=== PATIENT | female | born 1950 | race Caucasian/White ===

== ENCOUNTER → 2020-10-31 13:26 | Outpatient (CLI) | payer BC, SELFPAY ==
--- NOTE | ~2020-10-31 | MMUS_ITS ---
EXAMINATION: MM diagnostic jhony BI w lucila, US breast BI complete HISTORY: Right breast lump, right axillary lump TECHNIQUE: Full field and spot ML, MLO and cc 3-D tomosynthesis images of both breasts were performed and synthetic 2-D images were generated. CAD analysis was submitted and interpreted. High resolution complete bilateral breast ultrasound was performed. COMPARISON: 03/12/2017 bilateral digital screening mammogram BREAST PARENCHYMAL COMPOSITION: The breasts are heterogeneously dense, which may obscure small masses . FINDINGS: MAMMOGRAPHIC FINDINGS: There is interval asymmetric increased density in the mid to upper outer right breast and there are e nlarged right axillary lymph nodes since 03/12/2017. The findings are suspicious for possible right segun ast malignancy and metastatic right axillary lymphadenopathy. No reproducible mass or architectural distortion is evident on the left. No malignant calcification, skin thickening or retraction is evident on either side. ULTRASOUND: Right breast: 9:00 5 cm from nipple: There is a large very irregular hypoechoic mass with finger-like projections, increased vascularity and prominent shadowing, measuring up to 3.4 cm dimension, highly suggestive of malignancy. 9:00 8 cm from nipple: 9 x 6 x 13 mm lymph node with prominent central vascularity, suspicious for me tastatic lymph nodes. 10:00 8 cm from nipple: Irregular hypoechoic antiparallel mass measuring approximately 4 x 5 mm, susp icious for malignancy There are multiple right axillary lymph nodes, the largest measuring approximately 16 x 19 x 17 mm, w ith irregularity and prominent vascularity of the hilus, extending into the cortex, suspicious for me tastatic lymphadenopathy. Left breast: No suspicious mass, shadowing or vascularity is noted. IMPRESSION: 1. At least 3.4 cm irregular shadowing right breast mass at 9:00, highly suggestive of malignancy 2. 4 x 5 mm irregular hypoechoic anti-parallel mass at right breast 10:00 8 cm from nipple, suspiciou s for another malignant site 3. Suspected right metastatic lymphadenopathy at 9:00 8 cm from nipple and in the right axillary keli on BI-RADS category 5, highly suggestive of right breast malignancy and right breast and axillary metast atic lymphadenopathy. Reviewed, dictated and finalized at location A. IMPRESSION: 1. At least 3.4 cm irregular shadowing right breast mass at 9:00, highly sugges tive of malignancy 2. 4 x 5 mm irregular hypoechoic anti-parallel mass at right breast 10:00 8 cm from nipple, suspicious for another malignant site 3. Suspected right metastatic lymphadenopathy at 9:00 8 cm from nipple and in t he right axillary region BI-RADS category 5, highly suggestive of right breast malignancy and right jenni st and axillary metastatic lymphadenopathy.
== END ==
PROVIDERS: PCP Internal Medicine; Visit Provider Nurse Practitioner
DX: N63.25 Unspecified lump in the left breast, overlapping quadrants (principal)
CPT/HCPCS: 76641; 77062; 77066; G0279

== ENCOUNTER 2020-11-20 12:58 | Outpatient (CLI) | payer BC, SELFPAY ==
--- NOTE | ~2020-11-20 | MMUS_ITS ---
US breast biopsy RT w image, MM post biopsy invasive RT, US breast bx add lesion RT EXAMINATION: US G UIDED NEEDLE BIOPSY WITH VACUUM ASSISTANCE DATE: 11/20/2020 15:04 CDT INDICATION: Bilateral breast masses. Ultrasound-guided core biopsy is requested to evaluate for beulah gnancy. TECHNIQUE AND FINDINGS: The risks and potential benefits of the procedure were discussed with the patient, and written inform ed consent was obtained. After sterile preparation of the right breast, 1% lidocaine was utilized fo r local anesthesia. 1% lidocaine with epinephrine was used for deep anesthesia. Masses in the right breast at the 9:00 position, 5 cm from the nipple and 10:00 position, 8 cm from t he nipple are localized by ultrasound. Realtime imaging of the left breast mass at 9:00, 3 cm from th e nipple is compatible with a likely benign complicated cyst. Short-term follow-up left breast ultras ound in 6 months recommended to assess stability of this lesion. A 10G vacuum-assisted biopsy gun nee dle was advanced through to the outer edge of the region of interest from a superior approach utilizi ng sonographic guidance. A total of three tissue core samples were obtained through each lesion at b oth the 9 and 10:00 positions of the right breast. Inrad tissue marker clips were then placed at the biopsy sites. Hemostasis was achieved. The patient tolerated procedure well and there was no evidence of immediate complication. The patien t was given verbal instructions partly is from the department. Right breast mammograms to document t issue marker clip placement. The tissue samples were submitted to surgical pathology for histologic a nalysis. IMPRESSION: 1. Successful ultrasound-guided vacuum-assisted biopsy of right breast masses with tissue marker frandy cement. Please refer to pathology report for histologic analysis. 2: Probable benign complicated cyst of the left breast at 9:00, 3 cm from the nipple measuring 5 mm m aximum dimension. Six-month follow-up left breast ultrasound recommended. Reviewed, dictated and finalized at location A. IMPRESSION: 1. Successful ultrasound-guided vacuum-assisted biopsy of right breast masses with tissue marker placement. Please refer to pathology report for histologic a nalysis. 2: Probable benign complicated cyst of the left breast at 9:00, 3 cm from the n ipple measuring 5 mm maximum dimension. Six-month follow-up left breast ultraso und recommended. IMPRESSION: 1. Successful ultrasound-guided vacuum-assisted biopsy of right breast masses with tissue marker placement. Please refer to pathology report for histologic a nalysis. 2: Probable benign complicated cyst of the left breast at 9:00, 3 cm from the n ipple measuring 5 mm maximum dimension. Six-month follow-up left breast ultraso und recommended.
== END 2020-11-20 12:59 | disposition home or self-care (01) ==
PROVIDERS: PCP Internal Medicine; Visit Provider Nurse Practitioner
DX: C50.411 Malignant neoplasm of upper-outer quadrant of right female breast (principal)
CPT/HCPCS: 19083; 19084; 88305; 88342; 88360; A4648

== ENCOUNTER 2021-06-15 19:03 | Emergency (ER) | payer BC, SELFPAY ==
[2021-06-15] VITALS (10 sets, daily range): BP systolic 132–204; BP diastolic 77–118; PULSE 82–105; RESP 18–26; TEMP 36.7–38.3; O2SAT 93–99
--- NOTE | ~2021-06-15 | CT_ITS ---
EXAMINATION: CTA brain carotid EXAM DATE: 06/15/2021 21:07 INDICATION: intracranial hemorrhage TECHNIQUE: Spiral CTA of the carotid arteries was performed with intravenous injection 100 cc of Om nipaque 350. Axial, coronal, sagittal reformatted images reviewed. Additional reformatted images cre ated on dedicated 3-D workstation. NASCET comparable standard used to assess the degree of arterial stenosis. Spiral CT angiogram cerebral arteries performed with the same intravenous injection of con trast. Source images of the brain CTA transferred to dedicated workstation for 3-D rotational image c reation. Coronal, sagittal maximum intensity pixel images also reviewed. The dose-length product (D LP) for this examination was 1010.63 mGy-cm. The exposure was tailored according to patient size, a nd iterative reconstruction (ASIR) was used as additional dose reduction technique. FINDINGS: There is mild left carotid bulb arteriosclerosis, 0% carotid stenosis bilaterally. The vert ebral arteries are codominant. There is no carotid or vertebral basilar arterial dissection or fibr omuscular dysplasia. There are no cerebral artery aneurysms. There is symmetric cerebral artery arbor ization. The sagittal, transverse and sigmoid sinuses enhance normally, no venous sinus thrombosis. I nternal cerebral veins also enhance normally. Large acute right-sided subdural hematoma and right occipital lobe acute intraparenchymal hematoma ap pears stable compared to head CT 1 hour ago. Leftward midline shift. T5 mild to moderate compression fracture. Mild to moderate mucoperiosteal thickening. Dependent bilateral pleural effusions. IMPRESSION: 1. Large acute right subdural hematoma, contralateral midline shift unchanged. 2. Large acute right occipital lobe intraparenchymal hematoma, unchanged. 3. Bilateral carotid bulb 0% stenosis. 4. No aneurysm. Reviewed, dictated and finalized at location A. TRUCTION ECONOMIST
--- NOTE | ~2021-06-15 | XR_ITS ---
EXAMINATION: XR chest 1V portable EXAM DATE: 06/15/2021 19:41 INDICATION: Altered mental status, fell yesterday. TECHNIQUE: Portable AP frontal chest x-ray was obtained. There is no prior study for comparison. FINDINGS: There is left-sided portacatheter. Small to moderate-sized left subpulmonic pleural effusio n, adjacent atelectasis. Otherwise no evidence of acute airspace disease. No pneumothorax. Mild card iomegaly. The bones are osteopenic. There are bony degenerative changes. IMPRESSION: 1. Small to moderate left pleural effusion. 2. Adjacent left basilar segmental atelectasis. Reviewed, dictated and finalized at location A. TAL ARTIST
--- NOTE | ~2021-06-15 | CT_ITS ---
EXAMINATION: CT brain wo con EXAM DATE: 06/15/2021 19:37 INDICATION: altered mental status, vomiting . Fell yesterday. Headache and dizziness. Vomiting. TECHNIQUE: Spiral CT of the head was performed without contrast. Axial, coronal and sagittal images were reviewed. The dose-length product (DLP) for this examination was 605.33 mGy-cm. The exposure w as tailored according to patient size, and iterative reconstruction (ASIR) was used as additional dos e reduction technique. There is no prior study for comparison. FINDINGS: There is large right-sided acute subdural hematoma extending around the entire dural surfac e including the falx. There is about 1 cm of contralateral midline shift, subfalcine herniation with effacement of the right lateral ventricle. There is a large right occipital lobe intraparenchymal acu te hematoma measuring 3-4 cm. No uncal herniation or obstructive hydrocephalus. I discussed acute hem atomas with Ayde Bynum MD at 06/15/2021 19:37 SYSTEM CONTROLLER. IMPRESSION: 1. Large acute right subdural hematoma. Subfalcine herniation. 2. Large acute right occipital intraparenchymal hematoma. 3. Transfer for neurosurgical availability. Reviewed, dictated and finalized at location A. EM CONTROLLER
--- NOTE | 2021-06-15 19:10 | ECG_ITS ---
Measurements Intervals [place] Rate: 90 P: 65 AK: 138 QRS: 20 QRSD: 88 T: 34 QT: 378 QTc: 463 Interpretive Statements SINUS RHYTHM DELAYED PRECORDIAL R/S TRANSITION BASELINE ARTIFACT- I, II, III, AVR, AVL, AVF, V3-V6 BORDERLINE ECG Electronically Signed On 06-16-2021 7:43:01 [employer]INCIPAL by Caden Case D.O.
[2021-06-15] MEDS: SODIUM CHLORIDE 0.9% IV 1,000 ML 999 ML IV CONT (19:18)
[2021-06-15] MEDS: ONDANSETRON INJ 4 MG/2 ML VIAL IV PUSH (19:18)
[2021-06-15 19:51] LABS: Basophils Absolute Auto 0.1 K/mm3 (0.0-0.1); Basophils Percent Auto 0.7 % (0.2-1.2); Eosinophils Absolute Auto 0.3 K/mm3 (0-0.3); Hematocrit 28.3 % (37.0-47.0); Hemoglobin 9.2 g/dL (12.0-15.0); Immature Granulocyte Absolute 0.26 K/mm3 (0.00-0.031); Immature Granulocyte Percent A 2.4 % (0-0.5); Immature Platelet Fraction Pct 15.9 % (0.9-11.2); Lymphocytes Absolute Auto 0.99 K/mm3 (0.9-3.2); Lymphocytes Percent Auto 9.3 % (18.3-44.2); Mean Corpuscular HGB Conc 32.5 g/dl (32-36); Mean Corpuscular Volume 86.3 fl (80-100); Mean Platelet Volume 12.8 fl (7.4-10.4); Monocytes Absolute Auto 0.9 K/mm3 (0.1-0.6); Monocytes Percent Auto 8.5 % (2.6-8.5); Neutrophils Absolute Auto 8.1 K/mm3 (1.3-6.7); Neutrophils Percent Auto 76.1 % (45.5-73.1); Nucleated Red Blood Cells Perc 0.3 % (0.0-0.2); Platelet Count Result 257 k/mm3 (150-375); Red Blood Count 3.28 M/mm3 (4.2-5.4); White Blood Count 10.7 K/mm3 (4.5-10.0)
[2021-06-15] MEDS: levETIRAcetam 1000MG/NACL100ML 1,000 MG/100 ML BAG 400 MG IVPB (19:53)
--- NOTE | 2021-06-15 19:53 | ED.AMS ---
HPI - Altered Mental Status General Chief Complaint: Altered Mental Status Stated Complaint: ams and emesis Time Seen by Provider: 06/15/21 19:07 Source: patient, family, RN notes reviewed and old records reviewed Mode of arrival: EMS Limitations: altered mental status History of Present Illness HPI narrative: This is a 70 year old female with breast CA, hypertension who presents via EMS for headache, nausea, and vomiting. Nursing reports patient fell yesterday getting out of her car but patient denies falling and her denies her fall. She is complaining of right frontal headache with nausea and vomiting. Patient's states patient has not felt well for while due to her cancer and back fractures. He states she has been having intermittent headaches. He states she had nausea and vomiting last week but she was doing better until today. He states around 230 - 3 pm today she took her tramadol and muscle relaxer. He states she had emesis after that. He also states she took a nap around 430 pm today and he let her sleep for 1-2 hours. He tried to wake her up and she would not open her eyes. She was able to talk to him and tell him she had a headache. She stopped radiation treatment for Breast Cancer 3 weeks ago and she has not started chemotherapy. Related Data Home Medications Medication Instructions Recorded Confirmed cholecalciferol (vitamin D3) 250 250 mcg PO DAILY 10/17/20 05/29/21 mcg (10,000 unit) capsule fluticasone furoate 100 1 inh INHALATION DAILY 10/17/20 05/29/21 mcg-vilanterol 25 mcg/dose inhalation powder gabapentin 300 mg capsule 300 mg PO TID cap 10/17/20 05/29/21 glucosamine-chondroitin 250 mg-200 1 tablet PO DAILY tablet 10/17/20 05/29/21 mg tablet lorazepam 0.5 mg tablet 0.5 mg PO TID PRN 10/17/20 05/29/21 magnesium citrate 100 mg capsule See Rx Instructions PO BID 10/17/20 05/29/21 temazepam 22.5 mg capsule 22.5 mg PO QHS PRN 10/17/20 05/29/21 vitamin B complex 1 tablet PO DAILY 10/17/20 05/29/21 zinc 50 mg tablet 15 mg PO DAILY tablet 10/17/20 05/29/21 Allergies Allergy/AdvReac Type Severity Reaction Status Date / Time levofloxacin Allergy Intermediate Rash Verified 06/15/21 19:12 Review of Systems Review of Systems: ROS unobtainable: Yes unobtainable due to mental status [facility] Past Medical History Medical History (Updated 06/16/21 @ 06:27 by Ayde Bynum MD) Allergies Anxiety Asthma Breast nodule Essential hypertension Thyroid disease Surgical History Surgical History History of hip replacement History of nasal surgery Family History Family History Father Hypertension Heart disease Mother Hypertension Sibling Thyroid disease Social History Social History Smoking status: Never smoker Alcohol intake: never Substance use: never Gender identity (if verbalized by the patient): Female Sexual Orientation (if Verbalized by the Patient): Straight or Heterosexual Exam Const: General: ill appearing Other: oriented to person and age. slumped over . HENMT: Head: normocephalic and atraumatic Face and sinus: face symmetric Mouth: Yes Normal oral and palatal mucosa present, Yes lip normal, Yes oropharynx normal and Yes moist mucous membranes Eyes: Pupils: Equal, round and reactive pupils present EOM: EOMs intact bilaterally Neck: Neck: normal visual inspection Chest: Chest palpation & inspection: normal inspection of the chest Resp: Effort & Inspection: normal respiratory effort and no retractions Auscultation: clear to auscultation bilaterally Cardio: Rate: regular rate Rhythm: regular rhythm Heart sounds: no murmurs GI: GI Palp: Yes Soft to palpation, No Tenderness to palpation present (GI) and No Guarding due to palpation present (GI) Auscultation: n
[2021-06-15 19:56] LABS: Add Urine Microscopic? YES; Appearance Urine Cloudy (Clear); Bilirubin Urine Negative (Negative); Blood Urine Negative (Negative); Color Urine Yellow (Yellow); Glucose Urine UA Negative (Negative); Ketones Urine 1+ mg/dL (Negative); Leukocyte Esterase Ur Negative LEU/UL (Negative); Mucus Urine Rare /lpf; Nitrate Urine Negative (Negative); Protein Urine 1+ mg/dL (Negative); Specific Grav Ur 1.017 (1.001-1.035); Urobilinogen Urine Negative mg/dL (<2.0); WBC Urine 0-3 /hpf
[2021-06-15 20:01] LABS: INR 1.2; Partial Thromboplastin Time 31.6 SECONDS (22.3-36.8); Prothrombin Time 14.9 Seconds (11.1-14.7)
[2021-06-15 20:05] LABS: Alanine Aminotransferase 42 U/L (4-35); Albumin Level 3.8 g/dL (3.5-5.1); Alkaline Phosphatase 281 U/L (38-126); Anion Gap 13 mmol/L (8-16); Aspartate Amino Transferase 54 U/L (14-36); Bilirubin,Total 0.7 mg/dL (0.2-1.3); Blood Urea Nitrogen 15 mg/dL (7-17); Calcium 10.3 mg/dL (8.4-10.2); Carbon Dioxide 22 mmol/L (22-30); Chloride 103 mmol/L (98-107); Estimated Glomerular Filt Rate > 60; Glucose 129 mg/dL (65-110); Sodium 138 mmol/L (137-145)
[2021-06-15 20:06] LABS: Ethanol < 10 mg/dL (<10)
[2021-06-15] MEDS: LABETALOL HCL INJ 100 MG/20 ML VIAL 10 MG IV PUSH ×2 (20:11→21:03)
[2021-06-15 20:15] LABS: Amphetamine Screen Urine Negative (Negative); Barbiturate Screen Urine Negative (Negative); Benzodiazepines Screen Urine Negative (Negative); Cannabinoid Screen Urine Negative (Negative); Cocaine Screen Urine Negative (Negative); Methadone Screen Urine Negative (Negative); Opiate Screen Urine Negative (Negative); Phencyclidine Screen Urine Negative (Negative)
[2021-06-15 20:16] LABS: EDCOVIDSCREEN Negative (Negative)
[2021-06-15 20:23] LABS: Troponin I 0.025 ng/mL (0.000-0.034)
[2021-06-15 21:00] LABS: Glucose Point of Care 122 mg/dl (65-105)
[2021-06-16] VITALS: BP 176/81; PULSE 84; RESP 21; O2SAT 97
[2021-06-16 00:33] VITALS: BP 108/66; PULSE 82; RESP 21; O2SAT 98
--- NOTE | 2021-06-16 00:47 | PC.NURSE ---
This patient transferring to [facility], [address] ICU [address] 2 via [facility]. Patient's Lenin at bedside and received information on destination. Report given to DUONG Padron at receiving facility.
== END 2021-06-16 01:20 | disposition short-term general hospital (02) ==
LOC: ANHED 20:17
PROVIDERS: Emergency Provider General Practice; PCP Internal Medicine
DX: I62.01 Nontraumatic acute subdural hemorrhage (principal); I61.8 Other nontraumatic intracerebral hemorrhage; C50.919 Malignant neoplasm of unspecified site of unspecified female breast; I16.9 Hypertensive crisis, unspecified; E07.9 Disorder of thyroid, unspecified; I10 Essential (primary) hypertension; Z96.649 Presence of unspecified artificial hip joint; J45.909 Unspecified asthma, uncomplicated; F41.9 Anxiety disorder, unspecified; R94.31 Abnormal electrocardiogram [ECG] [EKG]
CPT/HCPCS: 36415; 70450; 70496; 70498; 71045; 80053; 80307; 81001; 82948; 84484; 85025; 85055; 85610; 85730; 87426; 93005; 96361; 96365; 96375; 96376; 99285; C9803; J1953; J2405; J7030; Q9967